=== PATIENT | male | born 1965 | race Caucasian/White ===

== ENCOUNTER 2023-07-03 13:09 | Emergency (ER) | payer OTHER, SELFPAY ==
[2023-07-03 13:23] VITALS: BP 140/80; PULSE 62; RESP 20; TEMP 36.9; O2SAT 100; BMI 22.9
--- NOTE | 2023-07-03 14:03 | ED.ABDPAIN ---
HPI - Abdominal Pain <Bharathi Beyer PA-C - Last Filed: 07/03/23 14:12> General Chief Complaint: Abdominal Pain Stated Complaint: constipated Time Seen by Provider: 07/03/23 13:50 Source: patient Mode of arrival: Ambulatory History of Present Illness HPI narrative: This is a 58-year-old male presents to the emergency department due to 2 days constipation. Patient states he used an enema without significant relief. Patient is concerned as he usually has a daily bowel movement. Denies any acute pain, fevers, nausea, vomiting, or any other concerning signs or symptoms Related Data Previous Rx's Medication Instructions Recorded bisacodyl 10 mg rectal suppository 10 mg IN DAILY #12 ea 07/03/23 polyethylene glycol 3350 17 17 g PO BID 10 days #340 grams 07/03/23 gram/dose oral powder (Miralax) psyllium husk 0.4 gram capsule 0.4 g PO DAILY #30 caps 07/03/23 (Metamucil) sennosides 8.6 mg capsule (senna) 8.6 mg PO BID 10 days #20 caps 07/03/23 Allergies Allergy/AdvReac Type Severity Reaction Status Date / Time No Known Drug Allergies Allergy Verified 07/03/23 13:28 Review of Systems <WIL Harrell Last Filed: 07/03/23 14:12> Review of Systems Narrative: GENERAL: Denies chills, fatigue, malaise, fever, sweats. HEENT: Denies sinus pain, ear pain, sore throat, difficulty swallowing, dizziness. RESPIRATORY: Denies dyspnea, cough, wheezing, hemoptysis, sputum. CARDIOVASCULAR: Denies chest pain, palpitations, orthopnea, edema, GASTROINTESTINAL: reports constipation : Denies dysuria, frequency, incontinence, hematuria, urinary retention. MUSCULOSKELETAL: denies weakness, joint pain, or bony pain SKIN: Denies rash, skin lesions, or other NEUROLOGIC: Denies weakness, headache, numbness, change in speech, confusion, seizures, incoordination. PSYCHIATRIC: No concerning psychosocial issues. 12 point review of systems is negative except for those stated above Patient History <Bharathi Beyer PA-C - Last Filed: 07/03/23 14:12> Social History Smoking Status: Never smoker Smoking Status: Never smoker alcohol intake frequency: 3 or more drinks per day Substance Use Type: does not use Exam <WIL Harrell Last Filed: 07/03/23 14:12> Narrative Exam Narrative: GENERAL: Well-developed patient, in mild distress. HEAD: Atraumatic. Normocephalic. EYES: Pupils equal round and reactive. Extraocular motions intact. No scleral icterus. No injection or drainage. ENT: Nose without bleeding, purulent drainage. Throat without erythema, tonsillar hypertrophy or exudate. Airway patent. NECK: Trachea midline. Non tender CARDIOVASCULAR: Regular rate and rhythm without murmurs, gallops, or rubs. RESPIRATORY: Clear to auscultation. Breath sounds equal bilaterally. No wheezes, rales, or rhonchi. GASTROINTESTINAL: Mild discomfort with palpation in the lower abdomen EXTREMITIES: No edema or joint tenderness. BACK: Nontender without deformity or crepitance. No flank tenderness. NEURO: AOx3. SKIN: No rash or erythema of visible areas Initial Vital Signs Initial Vital Signs: Vital Signs Temperature 98.4 F 07/03/23 13:23 Pulse Rate 62 07/03/23 13:23 Respiratory Rate 20 07/03/23 13:23 Blood Pressure 140/80 07/03/23 13:23 Pulse Oximetry 100 07/03/23 13:23 Oxygen Delivery Method Room Air 07/03/23 13:23 <DO Lorie Lugo Last Filed: 07/03/23 15:32> Initial Vital Signs Initial Vital Signs: Vital Signs Temperature 98.4 F 07/03/23 13:23 Pulse Rate 62 07/03/23 13:23 Respiratory Rate 20 07/03/23 13:23 Blood Pressure 140/80 07/03/23 13:23 Pulse Oximetry 100 07/03/23 13:23 Oxygen Delivery Method Room Air 07/03/23 13:23 Course <Bharathi Beyer PA-C - Last Filed: 07/03/23 14:12> Vital Signs Vital signs: Vital Signs - 8 hr 07/03/23 13:23 07/03/23 14:21 Temperature 98.4 F Pulse Rate 62 78 Respiratory Rate 20 19 Blood Pressure 140/80 146/78 H Pulse Oximetry 100 98 Oxygen Delivery Method Room Air Room Air <DO Lorie Lugo Last Filed: 07/03/23 15:32> Vital Signs Vital signs: Vital Signs - 8 hr 07/03/23 13:23 07/03/23 14:21 Temperature 98.4 F Pulse Rate 62 78 Respiratory Rate 20 19 Blood Pressure 140/80 146/78 H Pulse Oximetry 100 98 Oxygen Delivery Method Room Air Room Air MDM - Abdominal Pain <Bharathi Beyer PA-C - Last Filed: 07/03/23 14:12> MDM Narrative Medical decision making narrative: MDM * differential diagnosis includes but not limited to small-bowel obstruction, constipation, gastroenteritis * Prior records reviewed: patient has not been here for similar complaints in the past * My lab interpretation: none obtained * My imaging interpretation: none obtained * Clinical Decision Rules/Scores evaluated: None * Independent discussions with: None ED Course: This is a 58-year-old male presents emergency department due to suspected constipation. No significant abdominal pain, nausea, vomiting, or any other signs or symptoms concerning for small bowel obstruction. We will prescribe a regimen of oral laxatives as well as a suppository to take as needed. Also recommended dietary changes. Shared Decision Making: Discussed plan with the patient who is comfortable with the plan. Social Considerations: None Disposition: Discharged home Discharge Plan Departure Patient Disposition: Home Clinical Impression: Constipation Instructions: DI for Constipation Activity Restrictions/Additional Instructions: Thank you for coming to the [facility] Emergency Department today. Please take the oral laxatives as prescribed as well as the suppository. Also recommend increasing her fiber intake. I have also prescribed a fiber supplement for you to take. Should help you have a bowel movement. I hope you feel better soon. Please follow up with your primary care provider within a week. If you do not have a primary care provider please contact the [facility] Resource line at [phone]. They will ask some questions about your medical history and help you get set up with a provider in the community. Prescriptions: New polyethylene glycol 3350 [Miralax] 17 gram/dose powder 17 g PO BID 10 Days Qty: 340 0RF senna 8.6 mg capsule 8.6 mg PO BID 10 Days Qty: 20 0RF bisacodyl 10 mg suppository 10 mg IN DAILY Qty: 12 0RF psyllium husk [Metamucil] 0.4 gram capsule 0.4 g PO DAILY Qty: 30 0RF Stand Alone Forms: Patient Portal/API <Marko Moncada DO - Last Filed: 07/03/23 15:32> Cosign ED Attending Cosignature Attestation: Dr Moncada Co-Sign Statement: I was available for consultation during this patient's emergency department visit. This chart is signed by myself for administrative purposes only. I did not have direct contact with this patient during this visit. They were seen independently by the APC.
[2023-07-03 14:21] VITALS: BP 146/78; PULSE 78; RESP 19; O2SAT 98
== END 2023-07-03 14:22 | disposition home or self-care (01) ==
PROVIDERS: Emergency Provider Physician Assistant Medical
DX: K59.00 Constipation, unspecified (principal)
CPT/HCPCS: 99281; 99283